=== PATIENT | female | born 1990 | race Caucasian/White ===

== ENCOUNTER 2017-03-16 05:22 | Emergency (ER) | payer MEDICAID | END 2017-03-16 06:00 | disposition home or self-care (01) | LOC: D.ER 05:22 | DX: S93.402A Sprain of unspecified ligament of left ankle, initial encounter (principal); W10.9XXA Fall (on) (from) unspecified stairs and steps, initial encounter; Y93.89 Activity, other specified; Y92.89 Other specified places as the place of occurrence of the external cause; S93.602A Unspecified sprain of left foot, initial encounter ==

== ENCOUNTER 2017-03-24 06:27 | Emergency (ER) | payer MEDICAID | END 2017-03-24 07:50 | disposition home or self-care (01) | LOC: D.ER 06:27 | DX: S93.602A Unspecified sprain of left foot, initial encounter (principal); X58.XXXA Exposure to other specified factors, initial encounter; Y93.89 Activity, other specified; Y92.89 Other specified places as the place of occurrence of the external cause ==

== ENCOUNTER 2018-07-05 11:03 | Emergency (ER) | payer MEDICAID ==
[~2018-07-05] VITALS: Ht 157.5 cm; Wt 81.8 kg
[2018-07-05 11:14] VITALS: Ht 157.5 cm; Wt 81.8 kg
[2018-07-05] MEDS ORDERED: NEURONTIN 300300 MG PO (12:08)
[2018-07-05] MEDS ORDERED: TORADOL10 MG PO (12:08)
[2018-07-05 12:32] VITALS: BP 120/79
== END 2018-07-05 12:33 | disposition home or self-care (01) ==
LOC: D.ER 11:03
DX: M54.16 Radiculopathy, lumbar region (principal); F17.200 Nicotine dependence, unspecified, uncomplicated